=== PATIENT | female | born 1990 | race Caucasian/White ===

== ENCOUNTER 2018-04-27 15:06 | Emergency (ER) | payer BC ==
[~2018-04-27] VITALS: Ht 172.7 cm; Wt 68.0 kg
[2018-04-27 15:14] VITALS: Ht 172.7 cm; Wt 68.0 kg
[2018-04-27 18:25] LABS: BASOPHIL % 0.3 % (0-2); CARBON DIOXIDE 29.3 mmol/L (21-32); CHLORIDE SERUM 102 mmol/L (98-107); CREATININE SERUM 0.8 mg/dL (0.6-1.0); GFR1 > 60 mL/min; GLUCOSE SERUM 91 mg/dL (74-106); PLATELET COUNT 323 x10^3mcL (130-400); POTASSIUM SERUM 3.7 mmol/L (3.5-5.1); RED CELL DISTRIBUTION WIDTH 12.6 % (11.5-14.5); SODIUM SERUM 139 mmol/L (136-145)
[2018-04-27 18:30] LABS: ALBUMIN 3.6 g/dL (3.4-5.0); ALKALINE PHOSPHATASE 86 U/L (46-116); ALT/SGPT 13 U/L (14-59); AST/SGOT 16 U/L (15-37); BILIRUBIN TOTAL 0.24 mg/dL (0.20-1.00); TOTAL PROTEIN, SERUM 7.6 g/dL (6.4-8.2)
[2018-04-27 21:33] VITALS: BP 115/66
== END 2018-04-27 21:33 | disposition home or self-care (01) ==
LOC: ED 15:06
PROVIDERS: Emergency Medicine
DX: R10.11 Right upper quadrant pain (principal); R07.89 Other chest pain; J45.909 Unspecified asthma, uncomplicated; F41.9 Anxiety disorder, unspecified; F32.9 Major depressive disorder, single episode, unspecified; Z88.0 Allergy status to penicillin
CPT/HCPCS: J1885; J2270; J2405; J7030; Q9967